=== PATIENT | male | born 1995 | race Caucasian/White ===

== ENCOUNTER 2018-01-23 05:37 | Inpatient (IN) | payer OTHER ==
[~2018-01-23] VITALS: Ht 195.6 cm; Wt 147.9 kg
[2018-01-23] VITALS (13 sets, daily range): BP systolic 87–1196; BP diastolic 43–84
[2018-01-23 06:15] LABS: ABSOLUTE BASOPHILS 0.1 thou/uL (0.0-0.2); ABSOLUTE EOSINOPHILS 0.1 thou/uL (0.0-0.7); ABSOLUTE LYMPHOCYTES 4.9 thou/uL (0.8-5.3); ABSOLUTE MONOCYTES 0.6 thou/uL (0.0-1.2); ABSOLUTE NEUTROPHILS 3.8 thou/uL (1.6-8.1); BASOPHILS 0.6 %; EOSINOPHILS 1.3 %; HEMATOCRIT 46.9 % (42.0-52.0); HEMOGLOBIN 16.4 gm/dL (14.0-18.0); LYMPHOCYTES 51.9 %; MCH 30.8 pg (26.0-34.0); MCHC 34.9 g/dL (28.0-37.0); MCV 88.3 fL (80.0-100.0); MONOCYTES 6.5 %; MPV 11.3 fl. (7.2-11.1); NUCLEATED RBCS 0 /100WBC; PLATELET COUNT* 143 thou/uL (150-400); POLYS 39.7 %; RBC 5.31 mil/uL (4.50-6.00); RDW-CV 12.9 % (10.5-14.5); WBC 9.5 thou/uL (4.0-11.0)
[2018-01-23 06:23] LABS: ANION GAP 20 mmol/L (7-16); BUN 10 mg/dL (7-18); CALCIUM 9.6 mg/dL (8.5-10.1); CHLORIDE 96 mmol/L (98-107); CO2 19 mmol/L (21-32); GLUCOSE 442 mg/dL (70-99); SODIUM 135 mmol/L (136-145)
[2018-01-23 06:33] LABS: POTASSIUM 2.9 mmol/L (3.5-5.1)
[2018-01-23 06:34] LABS: ALBUMIN 4.2 g/dL (3.4-5.0); ALKALINE PHOSPHATASE 120 U/L (46-116); LIPASE 155 U/L (73-393); MAGNESIUM 1.7 mg/dL (1.8-2.4); NT-PRO BRAIN NAT PEPTIDE 12 pg/mL (<300); SGOT 78 U/L (15-37); SGPT 233 U/L (30-65); TROPONIN-I LEVEL <0.06 ng/mL (<0.06)
[2018-01-23 06:54] LABS: URINE BILIRUBIN NEGATIVE (Negative); URINE BLOOD NEGATIVE (Negative); URINE CLARITY CLEAR; URINE COLOR YELLOW; URINE GLUCOSE-RANDOM 3+ (Negative); URINE KETONES 1+ (Negative); URINE LEUKOCYTES-REFLEX NEGATIVE (Negative); URINE NITRITE-REFLEX NEGATIVE (Negative); URINE PROTEIN NEGATIVE (Negative); URINE SPECIFIC GRAVITY <= 1.005 (1.005-1.030); URINE UROBILINOGEN 0.2 E.U./dl (0.2-1.0)
[2018-01-23 07:03] LABS: HCO3 17.2 mmol/L (22.0-26.0); PCO2 26.1 mmHg (35.0-45.0); PO2 88.8 mmHg (75.0-100.0); pH 7.436 (7.340-7.450)
[2018-01-23 07:04] LABS: AMP/METHAMP Negative (Negative); BARBITURATES Negative (Negative); BENZODIAZEPINES Negative (Negative); COCAINE Negative (Negative); METHADONE Negative (Negative); OPIATES Negative (Negative); PCP Negative (Negative); THC Negative (Negative)
[2018-01-23 08:27] LABS: CK-MB MASS < 0.5 ng/mL (<0.5-3.6); PHOSPHORUS* 2.2 mg/dL (2.5-4.9)
[2018-01-23 09:13] LABS: ABSOLUTE BASOPHILS 0.1 thou/uL (0.0-0.2); ABSOLUTE LYMPHOCYTES 2.3 thou/uL (0.8-5.3); ABSOLUTE MONOCYTES 0.5 thou/uL (0.0-1.2); ABSOLUTE NEUTROPHILS 8.3 thou/uL (1.6-8.1); BASOPHILS 0.6 %; EOSINOPHILS 0.3 %; HEMATOCRIT 44.8 % (42.0-52.0); HEMOGLOBIN 15.6 gm/dL (14.0-18.0); LYMPHOCYTES 20.4 %; MCH 30.7 pg (26.0-34.0); MCHC 34.8 g/dL (28.0-37.0); MONOCYTES 4.7 %; MPV 11.4 fl. (7.2-11.1); NUCLEATED RBCS 0 /100WBC; PLATELET COUNT* 161 thou/uL (150-400); RBC 5.09 mil/uL (4.50-6.00); RDW-CV 12.6 % (10.5-14.5); WBC 11.2 thou/uL (4.0-11.0)
[2018-01-23 09:24] LABS: ANION GAP 13 mmol/L (7-16); BUN 8 mg/dL (7-18); CALCIUM 8.7 mg/dL (8.5-10.1); CHLORIDE 103 mmol/L (98-107); CO2 22 mmol/L (21-32); CREATININE 0.7 mg/dL (0.6-1.3); GLUCOSE 371 mg/dL (70-99); SODIUM 138 mmol/L (136-145)
[2018-01-23 09:31] LABS: CALCIUM 8.8 mg/dL (8.5-10.1); CREATININE 0.8 mg/dL (0.6-1.3); POTASSIUM 4.1 mmol/L (3.5-5.1)
[2018-01-23 09:34] LABS: ALBUMIN 3.9 g/dL (3.4-5.0); MAGNESIUM 1.7 mg/dL (1.8-2.4); PHOSPHORUS* 2.8 mg/dL (2.5-4.9)
[2018-01-23 09:45] LABS: ALBUMIN 3.7 g/dL (3.4-5.0); ALKALINE PHOSPHATASE 104 U/L (46-116); CK-MB MASS < 0.5 ng/mL (<0.5-3.6); SGOT 81 U/L (15-37); SGPT 212 U/L (30-65); TOTAL BILIRUBIN 0.7 mg/dL (<0.1-1.0); TOTAL PROTEIN 7.3 g/dL (6.4-8.2); TROPONIN-I LEVEL <0.06 ng/mL (<0.06)
[2018-01-23 09:46] LABS: PHOSPHORUS* 2.7 mg/dL (2.5-4.9)
--- NOTE | 2018-01-23 11:04 | EKG ---
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 : 1995 Requested By: Casimiro Fisher Order Number: [id number] MD: Paul Traore Measurements Intervals [place] Rate: 194 P: 43 SC: 127 QRS: 48 QRSD: 80 T: 28 QT: 268 QTc: 482 Interpretive Statements atrial fibrillation Repolarization abnormality, prob rate related Borderline prolonged QT interval No previous ECG available for comparison Electronically Signed On 01-23-2018 11:04:17 CDT by Paul Traore [email or web address] <ELECTRONICALLY SIGNED> By: Paul Traore MD, [facility] 01/23/18 1104 0542 0542 Paul Traore MD, FACC /EPI
[2018-01-23 13:37] LABS: CALCIUM 8.7 mg/dL (8.5-10.1); CREATININE 0.7 mg/dL (0.6-1.3); POTASSIUM 3.8 mmol/L (3.5-5.1)
[2018-01-23 13:40] LABS: ALBUMIN 3.6 g/dL (3.4-5.0); MAGNESIUM 1.7 mg/dL (1.8-2.4); PHOSPHORUS* 3.4 mg/dL (2.5-4.9)
--- NOTE | 2018-01-23 14:19 | 2DMMODE ---
[place] [address] 2 D/M-MODE ECHOCARDIOGRAM Name: BRUCE DANIELS Room: [address] IN [facility]#: [id number] Admission: 01/23/18 Attend Phys: Elie Horta Discharge: Date of : 89 Date of Service: 01/23/18 1419 Report #: [id number] THIS REPORT FOR: //name// APPROVED REPORT Study performed: 01/23/2018 10:03:22 EXAM: Comprehensive 2D, Doppler, and color-flow Echocardiogram Patient Location: In-Patient Room #: 006 Status: routine BSA: 2.52 HR: 105 bpm BP: 109/55 mmHg Rhythm: Atrial Fibrillation Other Information Study Quality: Fair Indications Atrial Fibrillation 2D Dimensions IVSd: 13.90 (7-11mm) LVOT Diam: 21.38 (18-24mm) LVDd: 34.75 mm PWd: 12.15 (7-11mm) Ascending Ao: 35.98 (22-36mm) LVDs: 20.81 (25-40mm) Aortic Root: 34.42 mm Volumes Left Atrial Volume (Systole) LA ESV Index: 12.50 mL/m2 Aortic Valve AoV Peak Rakesh.: 1.56 m/s AO Peak Gr.: 9.71 mmHg LVOT Max P.28 mmHg AO Mean Gr.: 5.22 mmHg LVOT Mean P.42 mmHg LVOT Max V: 1.03 m/s AO V2 VTI: 20.92 cm LVOT Mean V: 0.74 m/s JOVON (VTI): 2.72 cm2 LVOT V1 VTI: 15.86 cm Mitral Valve MV Decel. Time: 209.78 ms MV PHT: 60.83 ms MVA (PHT): 3.62 cm2 [place] [address] 2 D/M-MODE ECHOCARDIOGRAM Name: BRUCE DANIELS Room: [address] IN [facility]#: [id number] Admission: 01/23/18 Attend Phys: Elie Horta Discharge: Date of : 89 Date of Service: 01/23/18 1419 Report #: [id number] TDI Medial E' Rakesh.: 0.16 m/s Lateral E' Rakesh.: 0.15 m/s Pulmonary Valve PV Peak Rakesh.: 1.08 m/s PV Peak Gr.: 4.63 mmHg Left Ventricle The left ventricle is normal size. There is normal LV segmental wall motion. Mild concentric left ventricular hypertrophy. Left ventricular systolic function is normal. The left ventricular ejection fraction is within the normal range. LVEF is 65-70%. This study is not technically sufficient to allow evaluation of the LV diastolic function due to atrial fibrillation. Right Ventricle The right ventricle is normal size. The right ventricular systolic function is normal. Atria The left atrium size is normal. The right atrium size is normal. Aortic Valve The aortic valve is normal in structure. No aortic regurgitation is present. There is no aortic valvular stenosis. Mitral Valve The mitral valve is normal in structure. There is no mitral valve regurgitation noted. No evidence of mitral valve stenosis. Tricuspid Valve The tricuspid valve is normal in structure. Trace tricuspid regurgitation. Pulmonic Valve Pulmonic valve is not well visualized. There is no pulmonic valvular regurgitation. Great Vessels The aortic root is normal in size. IVC is not well visualized. Pericardium There is [place] [address] 2 D/M-MODE ECHOCARDIOGRAM Name: BRUCE DANIELS Room: [address] IN ..#: [id number] Admission: 01/23/18 Attend Phys: Elie Horta Discharge: Date of : 89 Date of Service: 01/23/18 141 Report #: [id number] <Conclusion> Mild concentric left ventricular hypertrophy. LVEF is 65-70%. <ELECTRONICALLY SIGNED> By: Paul Traore MD, [facility] 01/23/18 1419 141 1419 Paul Traore MD, FACC /INF
--- NOTE | 2018-01-23 15:47 | CON ---
[address] [address] CONSULTATION Name: BRUCE DANIELS Room: [address] IN [facility]#: [id number] Admission: 01/23/18 Attend Phys: Ximena Vo Discharge: Date of : [birth year] Report #: [id number] THIS REPORT FOR: //name// CC: Delaney Horta DATE OF SERVICE: 01/23/2018 HISTORY OF PRESENT ILLNESS: The patient is a 22-year-old single white male who I was asked to see in the hospital today after he was noted to be in atrial fibrillation. The patient has no previous history of heart disease. He is on no medications at this time. He does not exercise on a regular basis. He is also a large young man, standing 6 feet 5 inches and weighing 270 pounds. 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 He stays fairly active at work, although he does not exercise on a regular basis. He has had no previous history of heart disease. He has had no previous cardiac evaluation. He went to work last night at 9:00 and 5:00 in the morning. He got morning, he went home. When laid in bed, he felt lightheaded, felt his heart racing. His roommate brought him to the emergency room. He was found to be in a rapid heart rate. He was started on IV diltiazem. I was asked to see him for further evaluation and treatment. He denies any chest pain, increased shortness of breath, recent fever, lower extremity edema, pain in his legs, syncope, or bleeding. PAST MEDICAL HISTORY: Otherwise, he has had no surgical procedures. MEDICATIONS: He is on no medications. ALLERGIES: He has no known drug allergies. FAMILY HISTORY: His father had coronary artery bypass surgery. SOCIAL HISTORY: Both his parents are . He lives with a roommate here in [place]. No smoking, no alcohol abuse, no illicit drug use, does not drink much caffeine. REVIEW OF SYSTEMS: He has had no history of stroke. He denies snoring at night. No history of asthma, peptic ulcer disease, liver disease, kidney disease or cancer. He did see a psychologist after his parents both . His mother of a tumor. His father of lung disease. No chronic skin condition. No history of arthritis. PHYSICAL EXAMINATION: GENERAL: Revealed a large, young white male, lying in bed, he [place] [address] CONSULTATION Name: BRUCE DANIELS Room: [address]#: [id number] Admission: 01/23/18 Attend Phys: Ximena Vo Discharge: Date of : [birth year] Report #: [id number] VITAL SIGNS: He has a blood pressure of 120/60, pulse is 110, he was afebrile. HEENT: He was anicteric. Conjunctivae pink. Mucous membranes moist. NECK: Veins difficult to assess due to obesity. CHEST: Clear to auscultation. HEART: Irregular tachycardia. ABDOMEN: Obese, soft, and nontender. EXTREMITIES: Had no pitting edema. Posterior tibial pulse 2+ bilaterally. SKIN: Warm, dry. NEUROLOGIC: Nonfocal. LYMPH: No adenopathy. MUSCULOSKELETAL: No joint effusion. PSYCHIATRIC: Mood appears somewhat depressed. His ECG on admission showed a narrow complex tachycardia with nonspecific T-wave changes consistent with rapid atrial fibrillation. His workup in the emergency room, sodium was 135, potassium is 2.9, BUN 10, creatinine 1.0, glucose is 442, alkaline phosphatase is 120, SGPT 233, bilirubin 1.0. Troponin 0.06. TSH 1.9. Drug screen negative. White blood cell count 9.5, hemoglobin 16.4. His CO2 was only 19. He had a portable chest x-ray in the emergency room that showed normal heart size, clear lung mora. IMPRESSION AND RECOMMENDATIONS: 1. Rapid atrial fibrillation. Recommend rate control diltiazem and digoxin. I do not believe the patient needs to be anticoagulated at this time. I would check an echocardiogram. 2. Newly diagnosed diabetes. 3. Diabetic ketoacidosis. 4. Hypokalemia. I would replace his potassium. <ELECTRONICALLY SIGNED> By: Paul Traore MD, [facility] 01/23/18 1547 0815 1306David Beckie Traore MD, FAC /nt
[2018-01-23 17:46] LABS: CALCIUM 8.3 mg/dL (8.5-10.1); CREATININE 0.7 mg/dL (0.6-1.3); POTASSIUM 3.6 mmol/L (3.5-5.1)
[2018-01-23 17:49] LABS: ALBUMIN 3.2 g/dL (3.4-5.0); MAGNESIUM 2.1 mg/dL (1.8-2.4); PHOSPHORUS* 3.8 mg/dL (2.5-4.9)
[2018-01-24] VITALS (16 sets, daily range): BP systolic 91–133; BP diastolic 31–88
[2018-01-24 03:52] LABS: ABSOLUTE BASOPHILS 0.1 thou/uL (0.0-0.2); ABSOLUTE EOSINOPHILS 0.2 thou/uL (0.0-0.7); ABSOLUTE LYMPHOCYTES 4.2 thou/uL (0.8-5.3); ABSOLUTE MONOCYTES 0.5 thou/uL (0.0-1.2); ABSOLUTE NEUTROPHILS 5.9 thou/uL (1.6-8.1); BASOPHILS 0.9 %; EOSINOPHILS 1.4 %; HEMOGLOBIN 15.9 gm/dL (14.0-18.0); LYMPHOCYTES 38.8 %; MCH 30.9 pg (26.0-34.0); MCHC 34.5 g/dL (28.0-37.0); MCV 89.5 fL (80.0-100.0); MONOCYTES 4.6 %; NUCLEATED RBCS 0 /100WBC; PLATELET COUNT* 166 thou/uL (150-400); POLYS 54.3 %; RBC 5.14 mil/uL (4.50-6.00); RDW-CV 12.8 % (10.5-14.5); WBC 10.9 thou/uL (4.0-11.0)
[2018-01-24 04:23] LABS: CALCIUM 8.2 mg/dL (8.5-10.1); CREATININE 0.6 mg/dL (0.6-1.3); MAGNESIUM 1.8 mg/dL (1.8-2.4); PHOSPHORUS* 3.9 mg/dL (2.5-4.9)
--- NOTE | 2018-01-24 10:16 | EKG ---
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
[2018-01-25] VITALS: BP 111/55
[2018-01-25 02:10] LABS: GLYCOHEMOGLOBIN (HGB A1C) 11.1 % (4.8-5.6)
[2018-01-25 04:00] VITALS: BP 90/40
[2018-01-25 07:58] VITALS: BP 100/49
[2018-01-25 08:52] LABS: ABSOLUTE EOSINOPHILS 0.1 thou/uL (0.0-0.7); ABSOLUTE MONOCYTES 0.3 thou/uL (0.0-1.2); ABSOLUTE NEUTROPHILS 4.1 thou/uL (1.6-8.1); BASOPHILS 0.5 %; EOSINOPHILS 1.3 %; HEMATOCRIT 44.1 % (42.0-52.0); LYMPHOCYTES 39.5 %; MCH 30.6 pg (26.0-34.0); MCHC 34.2 g/dL (28.0-37.0); MCV 89.6 fL (80.0-100.0); MONOCYTES 4.4 %; MPV 11.7 fl. (7.2-11.1); NUCLEATED RBCS 0 /100WBC; PLATELET COUNT* 163 thou/uL (150-400); POLYS 54.3 %; RBC 4.91 mil/uL (4.50-6.00); WBC 7.6 thou/uL (4.0-11.0)
[2018-01-25 09:15] LABS: ALBUMIN 3.5 g/dL (3.4-5.0); ALKALINE PHOSPHATASE 96 U/L (46-116); ANION GAP 8 mmol/L (7-16); BUN 9 mg/dL (7-18); CHLORIDE 104 mmol/L (98-107); CO2 28 mmol/L (21-32); CREATININE 0.7 mg/dL (0.6-1.3); GLUCOSE 205 mg/dL (70-99); PHOSPHORUS* 4.2 mg/dL (2.5-4.9); POTASSIUM 3.6 mmol/L (3.5-5.1); SGOT 143 U/L (15-37); SGPT 265 U/L (30-65); SODIUM 140 mmol/L (136-145); TOTAL BILIRUBIN 0.7 mg/dL (<0.1-1.0)
[2018-01-25 12:00] VITALS: BP 107/71
--- NOTE | 2018-01-25 12:05 | EKG ---
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: SANCHEZ : 1995 Requested By: Dewayne Hastings Order Number: [id number] Rashard MD: Adelfo Hastings Measurements Intervals [place] Rate: 76 P: 34 [place]: 170 QRS: 21 QRSD: 85 T: 22 QT: 342 QTc: 385 Interpretive Statements Sinus rhythm Compared to ECG 01/24/2018 07:31:42 Atrial fibrillation no longer present Electronically Signed On 01-25-2018 12:04:51 CDT by Adelfo Hastings [email or web address] <ELECTRONICALLY SIGNED> By: Dewayne Hastings MD, [facility] 01/25/18 1204 1242 1242 Dewayne Hastings MD, [facility] /EPI
[2018-01-25 16:00] VITALS: BP 122/60
[2018-01-25 23:49] VITALS: BP 87/30
[2018-01-26 04:18] VITALS: BP 99/53
[2018-01-26 08:00] VITALS: BP 113/63
[2018-01-26 11:30] VITALS: BP 124/69
--- NOTE | 2018-01-26 14:07 | EKG ---
[place] [address] ELECTROCARDIOGRAM REPORT Name: BURCE DANIELS Room: [place] [address] ADM IN .R.#: [id number] Admission: 01/23/18 Attend Phys: Ximena Vo Discharge: Date of : [birth year] Report #: [id number] THIS REPORT FOR: //name// 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
--- NOTE | 2018-01-26 14:07 | EKG ---
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
[2018-01-26 16:00] VITALS: BP 126/72
[2018-01-26] MEDS ORDERED: BAYER CHEWABLE81 MG PO (18:09)
[2018-01-26] MEDS ORDERED: FLECAINIDE ACET50 M2 PO (18:10)
[2018-01-26] MEDS ORDERED: LANTUS100 UNIT/M SUBQ (18:12)
[2018-01-26] MEDS ORDERED: METFORMIN HCL500 MG PO (18:16)
[2018-01-26] MEDS ORDERED: HUMALOG100 UNIT/1 SUBQ (18:16)
[2018-01-26 18:19] VITALS: BP 126/72
--- NOTE | 2018-01-27 16:49 | CARDNUC ---
[place] [address] CARDIAC NUCLEAR IMAGING REPORT Name: FRANCESBRUCE A Room: [address]#: [id number] Admission: 01/23/18 Attend Phys: Elie Horta Discharge: 01/26/18 Date of : [birth year] Date of Service: 01/27/18 1649 Report #: [id number] THIS REPORT FOR: //name// APPROVED REPORT Study performed: 01/25/2018 16:00:00 Exam: Nuclear Stress Test Indication: Atrial Fibrillation Patient Location: In-Patient Room #: 227 Stress Tech: Caro Barclay Stress Nurse: Teressa Chan RN Ht: 6 ft 5 in Wt: 326 lbs BSA: 2.75 m2 BMI: 38.65 Medical History Medical History: Atrial Fibrillation-new onset, , Diabetes Medications: Digoxin, Diltiazem, flecainide Allergies: No known drug allergies Cardiac Risk Factors: DM Exercise History: Sedentary Stress Test Details Stress Test: Pharmacologic stress was paired with low level exercise. Reason for pharmacologic stress test: physical limitation. HR Resting HR: 79 bpm Max Heart Rate (APMHR): 197 bpm Max HR Achieved: 152 bpm Target HR (85% APMHR): 167 bpm % of APMHR: 77 Recovery HR: 63 bpm BP Resting BP: 118/80 mmHg Max BP: 143/58 mmHg ECG Resting ECG: Sinus Rhythm, normal EKG Stress ECG: Sinus Tachycardia ST Change: None Arrhythmia: [place] [address] CARDIAC NUCLEAR IMAGING REPORT Name: BRUCE DANIELS Room: [address]#: [id number] Admission: 01/23/18 Attend Phys: Elie Horta Discharge: 01/26/18 Date of : [birth year] Date of Service: 01/27/18 1649 Report #: [id number] Recovery ECG: Sinus Rhythm, normal EKG Recovery ST Change: None Recovery Arrhythmia: None Clinical Reason for Termination: Completed protocol Stress Symptoms: chest tightness Exercise duration: 4 min 0 sec Exercise capacity: 2.3 METs The patient had mild chest tightness with Lexiscan infusion that resolved promptly in recovery. Nurse Comments Patient stated that he had chest tightness after lexiscan was injected, rated 1, resolved in recovery. Stress ECG Conclusion Baseline 12-lead electrocardiogram shows normal sinus rhythm without significant ST or T wave abnormality. EKGs obtained during and post Lexiscan infusion show sinus rhythm and sinus tachycardia with no significant ST or T wave changes when compared to baseline. NM EXAM: Myocardial Perfusion REST/STRESS Imaging Protocol: Stress Tc-99m/Rest Tc-99m 2 days Resting Data Rest SPECT myocardial perfusion imaging was performed in supine position 30 minutes following the intravenous injection of 35.1 mCi of Tc-99m Sestamibi. Time of rest injection: 1010 Date: 01/27/2018 The images were gated to evaluate regional wall motion and calculate left ventricular ejection fraction. Administration Route: Straight Stick Administration Site: Right Hand Pharmacologic Stress Pharmacologic stress test was performed by injecting Regadenoson 0.4 mg IV push followed by the intravenous injection of 40.5 mCi of Tc-99m Sestamibi. Time of stress injection: 1035 Date: 01/26/2018 Administration Route: IV Administration Site: Right AC Heart Rate at time of stress injection: 152 bpm. Gated Stress SPECT was performed 40 minutes after stress injection. The images were gated to evaluate regional [place] [address] CARDIAC NUCLEAR IMAGING REPORT Name: FRANCESBRUCE Beltre Room: [address]#: [id number] Admission: 01/23/18 Attend Phys: Elie Horta Discharge: 01/26/18 Date of : 89 Date of Service: 01/27/18 1649 Report #: [id number] left ventricular ejection fraction. Prone imaging was performed. Study Quality Study: Fair Artifact: Mild Breast and diaphragmatic artifact Study Data At rest, the left ventricular ejection fraction was 66%.. Post stress, the left ventricular ejection was 63%.. TID = 0.96. Perfusion Perfusion images show mild photopenia in the inferior wall that resolves with prone imaging consistent with diaphragmatic attenuation artifact. No other significant defects are noted. Wall Motion Global LV systolic function is normal. Nuclear Conclusion ECG Findings: negative for ischemia Clinical Findings: equivocal Nuclear Findings: negative for ischemia Exercise Capacity: not assessed Left Ventricular Function: normal Risk Study: low Myocardial perfusion images show no defect to suggest infarct or ischemia. Gated images show preserved left ventricular systolic function. This is a low risk study. <Conclusion> Baseline 12-lead electrocardiogram shows normal sinus rhythm without significant ST or T wave abnormality. EKGs obtained during and post Lexiscan infusion show sinus rhythm and sinus tachycardia with no significant ST or T wave changes when compared to baseline. <ELECTRONICALLY SIGNED> By: Bobby Greene MD, FACC 01/27/18 164 48 48 Bobby Greene MD, FACC /INF
== END 2018-01-26 19:21 | disposition home or self-care (01) | DRG 308 ==
LOC: M.ERS 05:37 → M.2W 06:29 → M.ICU 06:29 → M.TBA-ER 06:29 → M.ICU 07:24 → M.2W 01-24 17:34
PROVIDERS: Emergency Medicine Emergency Medical Services; Family Medicine; Internal Medicine; ADMIT Internal Medicine
DX: I48.91 Unspecified atrial fibrillation (principal); E11.10 Type 2 diabetes mellitus with ketoacidosis without coma; E87.6 Hypokalemia; I51.7 Cardiomegaly; E83.42 Hypomagnesemia; E66.01 Morbid (severe) obesity due to excess calories; Z68.38 Body mass index [BMI] 38.0-38.9, adult; Z79.82 Long term (current) use of aspirin; Z79.899 Other long term (current) drug therapy; Z82.49 Family history of ischemic heart disease and other diseases of the circulatory system